=== PATIENT | female | born 1960 | race Two or more races ===

== ENCOUNTER 2023-12-19 15:16 | Emergency (ER) | payer OTHER ==
[2023-12-19 15:47] VITALS: TEMP 98.9; BMI 36.0
[2023-12-19] MEDS ORDERED: ACETAMINOPHEN INJECTION 100 ML IVPB ONE (15:58)
[2023-12-19 16:02] LABS: BASO % 1.1 % (0-2.0); HEMATOCRIT 38.4 % (32.4-45.2); HEMOGLOBIN 12.8 GM/dL (10.7-15.3); LYMPH % 32.8 % (8-40); MCH 28.5 pg (25.7-33.7); MCHC 33.4 g/dl (32.0-36.0); MEAN CELL VOLUME 85.4 fl (80-96); MEAN PLT VOLUME 9.2 fl (7.5-11.1); MONO % 7.7 % (3.8-10.2); NEUT % 55.4 % (42.8-82.8); PLATELET COUNT 237 10^3/uL (134-434); RBC 4.49 M/mm3 (3.60-5.2); RDW 13.9 % (11.6-15.6); WHITE BLOOD COUNT 6.6 K/mm3 (4.0-10.0)
[2023-12-19] MEDS: ACETAMINOPHEN 1000 MG/100 ML BAG IVPB ONE (16:03)
[2023-12-19] MEDS: SODIUM CHLORIDE 0.9% 500 ML INFUS.BAG IV ONE (16:03)
[2023-12-19 16:14] LABS: PROTHROMBIN TIME (PATIENT) 11.6 SEC (9.7-13.0)
[2023-12-19 16:17] LABS: ACTIVATED PTT 30.1 SECONDS (25.2-36.5)
[2023-12-19 16:32] LABS: POTASSIUM 4.1 mmol/L (3.5-5.1)
[2023-12-19 16:35] LABS: BLOOD UREA NITROGEN 13.3 mg/dL (7-18)
[2023-12-19 16:36] LABS: ALBUMIN 3.6 g/dl (3.4-5.0)
[2023-12-19 16:39] LABS: CREATININE 0.6 mg/dL (0.55-1.3)
[2023-12-19 16:40] LABS: BILIRUBIN,TOTAL 0.8 mg/dL (0.2-1); TOT PROT 7.2 g/dl (6.4-8.2)
[2023-12-19 19:30] VITALS: BP 171/82
[2023-12-19 19:49] VITALS: PULSE 87; RESP 16
== END 2023-12-19 19:49 | disposition home or self-care (01) ==
LOC: JER 15:16
PROC: 3E030NZ Introduction of Analgesics, Hypnotics, Sedatives into Peripheral Vein, Open Approach (ICD-10-PCS; principal; 2023-12-19)
DX: N93.9 Abnormal uterine and vaginal bleeding, unspecified (principal); R10.31 Right lower quadrant pain; D25.9 Leiomyoma of uterus, unspecified; N85.9 Noninflammatory disorder of uterus, unspecified
CPT/HCPCS: 36415; 76830-TC; 80053; 84703; 85025; 85610; 85730; 86850; 86900; 86901; 99284-25; J0131

== ENCOUNTER 2023-12-23 03:45 | Emergency (ER) | payer OTHER ==
[2023-12-23 03:48] VITALS: RESP 18; BMI 31.3
[2023-12-23 05:31] LABS: BASO % 0.9 % (0-2.0); EOS % 2.6 % (0-4.5); HEMATOCRIT 36.3 % (32.4-45.2); HEMOGLOBIN 11.8 GM/dL (10.7-15.3); LYMPH % 36.2 % (8-40); MCH 28.3 pg (25.7-33.7); MCHC 32.6 g/dl (32.0-36.0); MEAN CELL VOLUME 86.8 fl (80-96); MEAN PLT VOLUME 9.4 fl (7.5-11.1); NEUT % 54.3 % (42.8-82.8); PLATELET COUNT 225 10^3/uL (134-434); RBC 4.18 M/mm3 (3.60-5.2); RDW 13.8 % (11.6-15.6); WHITE BLOOD COUNT 6.1 K/mm3 (4.0-10.0)
[2023-12-23 05:47] LABS: POTASSIUM 3.6 mmol/L (3.5-5.1)
[2023-12-23 05:49] LABS: CALCIUM 8.6 mg/dL (8.5-10.1)
[2023-12-23 05:50] LABS: ALBUMIN 3.8 g/dl (3.4-5.0); BLOOD UREA NITROGEN 14.2 mg/dL (7-18)
[2023-12-23 05:53] LABS: CREATININE 0.6 mg/dL (0.55-1.3)
[2023-12-23 05:54] LABS: BILIRUBIN,TOTAL 0.8 mg/dL (0.2-1); TOT PROT 7.1 g/dl (6.4-8.2)
[2023-12-23 05:55] LABS: INR 0.89 (0.83-1.09); PROTHROMBIN TIME (PATIENT) 10.3 SEC (9.7-13.0)
[2023-12-23 06:17] VITALS: BP 156/69; PULSE 54; TEMP 98.3
== END 2023-12-23 06:24 | disposition home or self-care (01) ==
LOC: JER 03:45
DX: N93.9 Abnormal uterine and vaginal bleeding, unspecified (principal)
CPT/HCPCS: 36415; 80053; 85025; 85610; 85730; 86850; 86900; 86901; 99283-25